=== PATIENT | male | born 2000 | race Caucasian/White ===

== ENCOUNTER 2023-12-03 11:28 | Emergency (ER) | payer SELFPAY ==
--- NOTE | ~2023-12-03 | XR_ITS ---
Clinical Indication: Left lower chest pain PA and lateral views of the chest: Comparison: None Findings: Left basilar consolidation is compatible with pneumonia. Right lung clear.. Cardiomediasti nal silhouette is within normal limits. Bones and soft tissues are unremarkable. Impression: Left lower lobe pneumonia at the lung base. Reviewed, dictated and finalized at location . Impression: Left lower lobe pneumonia at the lung base.
[2023-12-03 11:33] VITALS: BP 142/89; PULSE 90; RESP 21; TEMP 36.4; O2SAT 98
--- NOTE | 2023-12-03 12:08 | ED.BACK ---
HPI - Back Pain/Injury General Chief Complaint: Back Pain/Injury Stated Complaint: left ribcage pain Time Seen by Provider: 12/03/23 12:07 Source: patient Mode of arrival: ambulatory Limitations: no limitations History of Present Illness HPI Narrative: 23 years old white male workup yesterday morning with pain at the left lower ribs posteriorly radiating to the front of left chest. Worse with deep breathing, certain movement, certain position, better sitting up. Patient been house sitting for 4 days. And symptoms started 2 days later. He denies any fever, chills, nausea, vomiting, difficulty breathing or swallowing. History of marijuana use and sciatica Related Data Allergies Allergy/AdvReac Type Severity Reaction Status Date / Time No Known Allergies Allergy Unknown Verified 12/03/23 11:33 Review of Systems Review of Systems: All systems reviewed & are unremarkable except as noted in HPI and below Exam Narrative: General appearance: Well-developed, well-nourished Skin: Normal color Head: Normocephalic, nontraumatic Eyes: Clear conjunctiva ENT: Oropharynx normal, ears normal, nose normal Neck: Supple, nontender Chest and respiratory: Airway patent, no respiratory distress, no accessory muscle use, diffuse tenderness left lower ribs anteriorly and posteriorly, no swelling, no rash, no bruises Heart: Regular rate/rhythm Abdomen: Soft, nontender, no organomegaly, quiet bowel sounds Vascular: Normal peripheral pulses, normal capillary refill. Musculoskeletal: Normal range of motion, nontender back Neurologic: Alert and oriented ?3, CERTIFIED MEDICAL AIDE is normal as tested, no gross motor deficit Course Vital Signs Vital signs: Vital Signs Temperature 36.4 C L 12/03/23 11:33 Pulse Rate 90 12/03/23 11:33 Respiratory Rate 21 H 12/03/23 11:33 Blood Pressure 142/89 H 12/03/23 11:33 Pulse Oximetry 98 12/03/23 11:33 Oxygen Delivery Room Air 12/03/23 11:33 Temperature 36.4 C L 12/03/23 11:33 Pulse Rate 97 12/03/23 13:07 Respiratory Rate 19 12/03/23 13:07 Blood Pressure 122/89 12/03/23 13:07 Pulse Oximetry 97 12/03/23 13:07 Oxygen Delivery Room Air 12/03/23 11:33 MDM - Back Pain/Injury MDM Narrative Medical decision making narrative: Differential diagnosis include musculoskeletal specially patient been sleeping in different beds and different from nature for the last 4 days. Pneumothorax less likely, pneumonia IS A POSSIBILITY. Chest x-ray ordered and showed PNEUMONIA Patient will be discharged on anti-inflammatory medicine, TYLENOL AND Z-BHAVYA Differential Diagnosis Differential diagnosis: Likely other ( ABOVE) Imaging Data Radiologist's impression: Impressions Chest X-Ray 12/03/23 13:32 Impression: Left lower lobe pneumonia at the lung base. Critical Care Time Critical Care Time Critical Care Time: No Discharge Plan Discharge Clinical Impression: Pneumonia Patient Disposition: Home, Self-Care Condition: Stable Instructions: Community Acquired Pneumonia (ED) Additional Instructions: Take Tylenol, ibuprofen as needed Return if symptoms are worsening , call your family physician for appointment, take Tylenol, IBUPROFEN as as needed for aches and pain, continue home medications. Prescriptions: New azithromycin [Zithromax Z-Bhavya] 250 mg tablet 250 mg PO DAILY PRN (Reason: PNEUMONIA) 5 Days Qty: 6 0RF Follow-up/Referrals: PHYSICIAN NOT ON STAFF,NONSTAFF [Non-Staff] - Freedom Russell MD [Physician] - 12/06/23
[2023-12-03] MEDS: IBUPROFEN 600 MG TABLET PO (13:06)
[2023-12-03] MEDS: ACETAMINOPHEN 500 MG TABLET 1000 MG PO (13:06)
[2023-12-03 13:07] VITALS: BP 122/89; PULSE 97; RESP 19; O2SAT 97
[2023-12-03 13:58] VITALS: BP 139/80; PULSE 87; RESP 19; TEMP 36.4; O2SAT 98
== END 2023-12-03 13:59 | disposition home or self-care (01) ==
PROVIDERS: Emergency Provider Emergency Medicine
DX: J18.9 Pneumonia, unspecified organism (principal)
CPT/HCPCS: 71046; 99283; A9270